=== PATIENT | male | born 1990 | race Caucasian/White ===

== ENCOUNTER 2018-12-05 11:24 | Emergency (ER) | payer OTHER ==
--- NOTE | 2018-12-05 11:50 | EDM.PDOC ---
ED HPI GENERAL MEDICAL PROBLEM - General Chief Complaint: Upper Extremity Injury/Pain Stated Complaint: SMASHED HAND Time Seen by Provider: 12/05/18 11:36 Source of Information: Reports: Patient History Limitations: Reports: No Limitations - History of Present Illness INITIAL COMMENTS - FREE TEXT/NARRATIVE: HISTORY AND PHYSICAL: History of present illness: Patient is a 28-year-old male presents to the ED today after a crush injury at work between pipe 30 minutes prior to arrival to the ED. Patient states his left wrist and his left hand were injured. He denies any other prior injury to the area. He states that first it felt tingly and numb. He states that has gone away and he is fully able to move his fingers. He states he has difficulty moving his wrist due to pain. Patient denies any fever, chills, headache, change in vision, syncope or near syncope. Denies any chest pain, shortness of breath or cough. Denies any abdominal pain, nausea, vomiting, diarrhea, constipation or dysuria. Has not noted any blood in urine or stool. Patient has been eating and drinking appropriately. Review of systems: As per history of present illness and below otherwise all systems reviewed and negative. Past medical history: As per history of present illness and as reviewed below otherwise noncontributory. Surgical history: As per history of present illness and as reviewed below otherwise noncontributory. Social history: See social history for further information Family history: As per history of present illness and as reviewed below otherwise noncontributory. Physical exam: General: Patient is alert, oriented, and in no acute distress. He is sitting comfortably on exam table. HEENT: Atraumatic, normocephalic, pupils equal and reactive bilaterally, negative for conjunctival pallor or scleral icterus, mucous membranes moist, TMs normal bilaterally, throat clear, neck supple, nontender, trachea midline. No drooling or trismus noted. No meningeal signs. No hot potato voice noted. Lungs: Clear to auscultation, breath sounds equal bilaterally, chest nontender. Heart: S1S2, regular rate and rhythm without overt murmur Abdomen: Soft, nondistended, nontender. Negative for masses or hepatosplenomegaly. Negative for costovertebral tenderness. Pelvis: Stable nontender. Genitourinary: Deferred. Rectal: Deferred. Skin: Intact, warm, dry. No lesions or rashes noted. Extremities: Left wrist and hand are slightly more swollen than the right. Radial pulses are grossly intact bilaterally. Patient has full range of motion of all digits of the hands bilaterally. Range of motion of left wrist limited due to pain. Capillary refill less than 2 seconds. There is no break in the skin or laceration. Negative for cords or calf pain. Neurovascular unremarkable. Neuro: Awake, alert, oriented. Cranial nerves II through XII unremarkable. Cerebellum unremarkable. Motor and sensory unremarkable throughout. Exam nonfocal. Notes: Will do imaging today. X-ray shows a nondisplaced styloid ulnar fracture. Discussed the importance for follow-up with orthopedics. Patient was placed in custom orthoglass splint. Supportive care measures were reviewed and discussed. Voices understanding and is agreeable to plan of care. Denies any further questions or concerns at this time. Diagnostics: hand and wrist xray Therapeutics: Toradol, fiberglass splint Prescription: [place] #15 Impression: Nondisplaced ulnar styloid fracture Plan: 1. Rest, ice, elevate the extremity as able. 2. Tylenol and/or ibuprofen as needed for pain management. 3. Please follow-up with the orthopedic provider as discussed. Return to the ED as needed and as discussed Definitive disposition and diagnosis as appropriate pending reevaluation and review of above. Left Hand Pain Score (Numeric/FACES): 7 - Related Data Allergies Allergy/AdvReac Type Severity Reaction Status Date / Time Penicillins Allergy Other Verified 12/05/18 11:36 Home Meds: Home Meds Hydrocodone/Acetaminophen [[place] 5-325 Tablet] 1 each PO Q4HR PRN #15 tablet [Rx] Past Medical History - Past Health History Medical/Surgical History: Denies Medical/Surgical History - Infectious Disease History Infectious Disease History: Reports: None Social & Family History - Family History Family Medical History: Noncontributory - Tobacco Use Smoking Status *Q: Current Every Day Smoker Years of Tobacco use: 10 Packs/Tins Daily: 0.1 - Caffeine Use Caffeine Use: Reports: Coffee, Energy Drinks - Recreational Drug Use Recreational Drug Use: No Review of Systems - Review of Systems Review Of Systems: ROS reveals no pertinent complaints other than HPI. ED EXAM, GENERAL - Physical Exam Exam: See Below (see dictation) Course - Vital Signs Last Recorded V/S: Last Vital Signs Temp 97.0 F 12/05/18 11:34 Pulse 98 12/05/18 11:34 Resp 18 12/05/18 11:34 BP 122/68 12/05/18 11:34 Pulse Ox 95 12/05/18 11:34 - Orders/Labs/Meds Orders: Active Orders 24 hr Category Date Time Status DME for Discharge [COMM] Stat Oth 12/05/18 12:24 Ordered Departure - Departure Time of Disposition: 12:30 Disposition: Home, Self-Care 01 Clinical Impression: Ulnar fracture Qualifiers: Encounter type: initial encounter Ulna location: styloid process Fracture type : closed Fracture alignment: nondisplaced Laterality: left Qualified Code(s): S52.615A - Nondisplaced fracture of left ulna styloid process, initial encounter for closed fracture - Discharge Information Prescriptions: Hydrocodone/Acetaminophen [[place] 5-325 Tablet] 1 each PO Q4HR PRN #15 tablet PRN Reason: Pain Referrals: PCP,None [Primary Care Provider] - Forms: ED Department Discharge Additional Instructions: The following information is given to patients seen in the emergency department who are being discharged to home. This information is to outline your options for follow-up care. We provide all patients seen in our emergency department with a follow-up referral. The need for follow-up, as well as the timing and circumstances, are variable depending upon the specifics of your emergency department visit. If you don't have a primary care physician on staff, we will provide you with a referral. We always advise you to contact your personal physician following an emergency department visit to inform them of the circumstance of the visit and for follow-up with them and/or the need for any referrals to a consulting specialist. The emergency department will also refer you to a specialist when appropriate. This referral assures that you have the opportunity for follow-up care with a specialist. All of these measure are taken in an effort to provide you with optimal care, which includes your follow-up. Under all circumstances we always encourage you to contact your private physician who remains a resource for coordinating your care. When calling for follow-up care, please make the office aware that this follow-up is from your recent emergency room visit. If for any reason you are refused follow-up, please contact the [facility] Emergency Department at and asked to speak to the emergency department charge nurse. MARK [facility] [address] [place] [address] [facility] [address] [place] [address] 1. Rest, ice, elevate the extremity as able. Use medication as prescribed. 2. Tylenol and/or ibuprofen as needed for pain management. 3. Please follow-up with the orthopedic provider and/or your primary care provider as discussed. Return to the ED as needed and as discussed - My Orders Last 24 Hours: My Active Orders 12/05/18 12:24 DME for Discharge [COMM] Stat - Assessment/Plan Last 24 Hours: My Active Orders 12/05/18 12:24 DME for Discharge [COMM] Stat
--- NOTE | 2018-12-05 12:18 | CR ---
EXAMINATION: Left hand and left wrist HISTORY: Injury COMPARISON: None TECHNIQUE: 3 views of the left hand and 3 views of the left wrist FINDINGS: There is a nondisplaced ulnar styloid fracture identified with moderate soft tissue swelling along the radial aspect of the hand and wrist. The remaining osseous structures and joint spaces are preserved. Bone mineralization is normal. Radiocarpal alignment is intact. IMPRESSION: Nondisplaced ulnar styloid fracture.
== END 2018-12-05 13:06 | disposition home or self-care (01) ==
LOC: MW.ED 11:24
DX: S52.615A Nondisplaced fracture of left ulna styloid process, initial encounter for closed fracture (principal); F17.210 Nicotine dependence, cigarettes, uncomplicated; W20.8XXA Other cause of strike by thrown, projected or falling object, initial encounter
CPT/HCPCS: 73110-26-LT; 73110-LT; 73130-26-LT; 73130-LT; 99283-25